=== PATIENT | female | born 1965 | race Caucasian/White ===

== ENCOUNTER 2017-04-21 10:50 | Emergency (ER) | payer BC ==
[2017-04-21 11:04] VITALS: BP 153/102
--- NOTE | 2017-04-21 12:55 | EDM.PDOC ---
ED HPI GENERAL MEDICAL PROBLEM - General Chief Complaint: General Stated Complaint: INFECTED PORT SITE Time Seen by Provider: 04/21/17 11:00 Source of Information: Reports: Patient History Limitations: Reports: No Limitations - History of Present Illness INITIAL COMMENTS - FREE TEXT/NARRATIVE: Pt claims that she had the Port-A-Cath removed at [facility] 3 days ago. Pt claims that dermabond was applied on the wound. She has developed itchy red rash around it. No discharge form the lesion. No pain or discomfort. No fever or chills. Pt claims that she had similar reaction when she had the port placed in 2015, at which point several things used during the procedure were checked for reaction and was hard to find it. The reaction happen 5 days after procedure then, but now the rash has appeared 3 days after procedure. Pt did call her surgeon. She was advised to removed the dermabond applied over the wound, but she was concerned and hence here in the emergency room Duration: Day(s): (2) Improves with: Reports: None Worsens with: Reports: None Associated Symptoms: Reports: Rash. 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 Denies: Bruising ED EXAM, GENERAL - Physical Exam Exam: See Below Exam Limited By: No Limitations General Appearance: Alert, WD/WN, No Apparent Distress Eye Exam: Bilateral Eye: EOMI, PERRL Ears: Normal External Exam, Normal Canal, Hearing Grossly Normal, Normal TMs Ear Exam: Bilateral Ear: Auricle Normal, Canal Normal, TM normal Nose: Normal Inspection, Normal Mucosa, No Blood Throat/Mouth: Normal Inspection, Normal Lips, Normal Teeth, Normal Gums, Normal Oropharynx, Normal Voice, No Airway Compromise Head: Atraumatic, Normocephalic Neck: Normal Inspection, Supple, Non-Tender, Full Range of Motion Respiratory/Chest: No Respiratory Distress, Lungs Clear, Normal Breath Sounds, No Accessory Muscle Use, Chest Non-Tender Cardiovascular: Normal Peripheral Pulses, Regular Rate, Rhythm, No Edema, No Gallop, No JVD, No Murmur, No Rub Skin Exam: Warm, Intact, Other (There is a clean small 2cm incsion over the left infraclavicular region. There is dermabond layear seen over the wound. there are small les than 2 mm papular rashes seen around the incision and spreading outwards. Non tedner. No discahrge.) Course - Vital Signs Text/Narrative:: The surgical incision appear clean. There are no signs of infection. It does appear like contact dermatitis asso with the dermabond. So I did Remove the dermabond layer carefully. Clean the area with Tincture benzoin and applied steri-strip. Pt reassured. Advised to avoid scratching the area. Benadryl 25- 50mg 3 times daily for itching. If the rash spread or if there is drainage form the wound advised to return to emergency room [facility]. Otherwise followup with her Primary care provider early next week. Last Recorded V/S: Last Vital Signs Temp 96.9 F 04/21/17 10:59 Pulse 74 04/21/17 10:59 Resp BP 153/102 H 04/21/17 10:59 Pulse Ox 100 04/21/17 10:59 Departure - Departure Time of Disposition: 11:20 Disposition: Home, Self-Care 01 Condition: Good Clinical Impression: Contact dermatitis - Discharge Information Instructions: Contact Dermatitis, [id number] Referrals: PCP,None [Primary Care Provider] - Forms: ED Department Discharge Additional Instructions: Leave steri strips in place until they fall off, about 5 days or so. You can use OTC benadryl as needed for the itchy rash. Do NOT put anything over the rash. You may shower and bath as usual, just do not scrub the site. - Problem List & Annotations (1) Contact dermatitis SNOMED Code(s): 79347438 Code(s): L25.9 - UNSPECIFIED CONTACT DERMATITIS, UNSPECIFIED CAUSE Status: Acute - Problem List Review Problem List Initiated/Reviewed/Updated: Yes - Assessment/Plan Assessment:: Contact dermatitis Plan: The surgical incision appear clean. There are no signs of infection. It does appear like contact dermatitis asso with the dermabond. So I did Remove the dermabond layer carefully. Clean the area with Tincture benzoin and applied steri-strip. Pt reassured. Advised to avoid scratching the area. Benadryl 25- 50mg 3 times daily for itching. If the rash spread or if there is drainage form the wound advised to return to emergency room [facility]. Otherwise followup with her Primary care provider early next week.
== END 2017-04-21 11:20 | disposition home or self-care (01) ==
LOC: LB.ED 10:50
DX: L25.8 Unspecified contact dermatitis due to other agents (principal); Z88.1 Allergy status to other antibiotic agents; Z98.890 Other specified postprocedural states
CPT/HCPCS: 99283